=== PATIENT | female | born 1980 | race Caucasian/White ===

== ENCOUNTER 2025-03-25 11:38 | Emergency (ER) | payer BC, SELFPAY ==
[2025-03-25 11:41] VITALS: BP 134/91
--- NOTE | 2025-03-25 12:31 | ED.GENMED ---
History of Present Illness
General
Chief Complaint: Extremity Pain (non-traumatic)
Source: patient
Exam Limitations: none
Time Seen by Provider: 03/25/25 12:26
Nursing documentation reviewed up to this point in time: agreed with
History of Present Illness
History of Present Illness:
see MDM
Past History
Past History
ED Past Medical History: Psychiatric (Depression and anxiety disorder)
ED Past Surgical History: None
Social History
Tobacco: Non-smoker
Alcohol: None
Drug: None
Living: with family
Review of Systems
Review of Systems
Allergies reviewed?: Yes
All Other Systems: Not applicable
Phy Exam
Physical Exam
Physical Exam:
GENERAL: Alert , in no apparent distress, comfortable at rest
HEAD: NCAT
CV: 2+ DP PULSES B/L
NEUROLOGICAL: Alert and oriented, no focal neuro deficits, , 5/5 strength, sensation intact, ambulation slight
SKIN: Warm and dry,
MUSCULOSKELETAL: Normal inspection of the left leg, no redness, no swelling, mild tenderness the left posterior lateral thigh, no muscle spasm appreciated, full painless range of motion of the hip, negative straight leg raise
PSYCH: Normal and appropriate interaction.
Course
Orders/Labs/Results
Orders:
Orders
03/25/25 12:35
Venous Doppler Lwr Ext Left [US Periph Venous LOWER Ext LT] Urgent
Comment:
Reason For Exam: left thigh pain
Vital Signs
Initial and Last Documented VS:
Initial Vital Signs
Temp Pulse Resp BP Pulse Ox
36.9 C 98 16 134/91 98
03/25/25 11:41 03/25/25 11:41 03/25/25 11:41 03/25/25 11:41 03/25/25 11:41
Last Documented Vital Signs
Temp Pulse Resp BP Pulse Ox
36.9 C 98 16 134/91 98
03/25/25 11:41 03/25/25 11:41 03/25/25 11:41 03/25/25 11:41 03/25/25 12:36
MDM/Problems Addressed
Differential Diagnosis Includes:
see MDM
MDM/Problems Addressed:
Note:
CHIEF COMPLAINT(S)
Intense pain in the hip region since the middle of the night.
HISTORY OF PRESENT ILLNESS
The patient is a 44-year-old female who presents with acute pain in the hip region that began in the middle of the night around 3 a.m. patient is still able to move it but says that she was feeling like it was sore when she was laying on it last
night. Patient tossed and turned.. The patient describes the onset of pain as occurring while shifting in bed and states it is not uncommon for her to lie in unusual positions at night. She denies recent travel by plane but mentions usual car
travel. The patient denies experiencing chest pain or shortness of breath. She has not engaged in any unusual activities such as running or weightlifting recently. The patient is concerned about the pain but has not identified a specific injury.
Patient is concerned about a blood clot. She has had no swelling in the leg, recent travel or provoking reasons to have a DVT or PE
There is no redness or swelling or weakness. There is no fevers or chills. Patient is ambulatory and sitting comfortably in bed
PLAN
The plan involves examining the hip and performing a diagnostic ultrasound to assess the area further.
DIFFERENTIAL DIAGNOSIS
The Differential Diagnosis includes, in no particular order and is not limited to:
- Hip bursitis
- Muscle strain
- Trochanteric bursitis
- Labral tear
- Osteoarthritis
- Iliopsoas syndrome
- Femoroacetabular impingement
- Sacroiliitis
- Stress fracture
- Sciatica
CARE-UPDATE
03/25/25 - 13:04
Patient is currently taking Abilify, with no reported side effects. They mentioned discomfort in the lateral muscle area, but no trauma. Likely not bone-related, given the strong femur anatomy. Pain onset appears consistent with nerve irritation,
potentially a pinched sciatic nerve. Discussed obtaining an X-ray (referred to as [facility]) for further evaluation. Ibuprofen deemed unlikely to be effective, so not administered at present. No recent use of cannabis.
*Pulse Oximetry
SaO2: 98
Oxygen Mode of Delivery: Room air
Patient hypoxic: no (98)
*Critical Care Note
Total Time (30-74mins, 75-104mins- exclusive of procedures): Not Applicable
ED Attending Note
-
Portions of this chart may have been created with voice recognition software.� Occasional wrong word or��sound alike� substitutions may have occurred due to the inherent limitations of voice recognition software.
Discharge Plan
Departure
Patient Disposition: Home (Routine Discharge)
Date of Disposition: 03/25/25
Time of Disposition: 14:44
Patient with high blood pressure during this ER visit?: No
Condition: Fair
Covid-19: Not Applicable
Discharge Problem:
Left thigh pain
Instructions: Muscle and Bone Pain (DC)
Referrals:
NONE,* [Family Provider, Internal Medicine]
Activity Restrictions/Additional Instructions:
Were not sure the cause of your thigh pain. You had no blood clot in your leg. Try ibuprofen 3 times a day with food over the next couple of days, warm compresses. Return for any numbness tingling weakness, color change, inability to walk, fever
or chills etc.
Interventions
Interventions:
*Risk Screen - Suicide Last Done: 03/25/25 11:41
*Neglect/Abuse Screening Last Done: 03/25/25 11:41
*Nursing Disposition Last Done: 03/25/25 15:00
ED-Skin Assessment Last Done: 03/25/25 14:59
ED-Peripheral Vascular Assessment Last Done: 03/25/25 14:59
ED-Musculoskeletal Assessment Last Done: 03/25/25 14:59
Discharge Date and Time
Discharge Date/Time: 03/25/25 15:01
Print Language: [id number]
== END 2025-03-25 15:01 | disposition home or self-care (01) ==
LOC: EMR 11:38
PROVIDERS: EMERGENCY PHYSICIAN Emergency Medicine
DX: M79.652 Pain in left thigh (principal)
CPT/HCPCS: 99284; 93971